=== PATIENT | male | born 1980 | race African-American/Black ===

== ENCOUNTER 2018-11-14 12:08 | Emergency (ER) | payer OTHER ==
[~2018-11-14] VITALS: Ht 175.3 cm; Wt 59.1 kg
[2018-11-14] MEDS ORDERED: MORPHINE SUL30 M3 PO (12:22)
[2018-11-14] MEDS ORDERED: MOTRIN200 MG PO (12:23)
[2018-11-14] MEDS ORDERED: DOXYCYC MONO100 M1 PO (12:33)
[2018-11-14 12:39] VITALS: BP 109/61
[2018-11-14] MEDS ORDERED: HYDROMORPHON8 MG PO (13:04)
== END 2018-11-14 12:40 | disposition home or self-care (01) ==
LOC: ED 12:08
DX: L03.011 Cellulitis of right finger (principal); F17.210 Nicotine dependence, cigarettes, uncomplicated